=== PATIENT | female | born 1955 | race Two or more races ===

== ENCOUNTER 2019-07-10 09:10 | Outpatient (CLI) | payer MEDICARE, OTHER ==
[~2019-07-10] VITALS: Ht 165.1 cm; Wt 67.6 kg
[2019-07-10] MEDS ORDERED: CHOLESTEROL MED (13:28)
[2019-07-10] MEDS ORDERED: THYROID MED (13:28)
[2019-07-10 13:29] VITALS: BP 116/74
--- NOTE | 2019-07-10 16:00 | Consultation ---
DATE OF CONSULTATION: 07/10/2019 CHIEF COMPLAINT: Referral for screening colonoscopy. PAST MEDICAL HISTORY: 1. History of hypothyroidism 2. Hypercholesteremia. PAST SURGICAL HISTORY: None. MEDICATIONS: Thyroid medication, cholesterol medication. FAMILY HISTORY: No family history of GI malignancies. SOCIAL HISTORY: The patient denies any alcohol abuse, but she smokes two cigarettes per day. No IV drug abuse. ALLERGIES: No known allergies. REVIEW OF SYSTEMS: A 10-point review of systems was performed and was negative. PHYSICAL EXAMINATION: VITAL SIGNS: Temperature 98.3, blood pressure 116/74, pulse 69, respirations 20. HEENT: Normocephalic and atraumatic. Sclerae anicteric. NECK: Supple. No evidence of obvious lymphadenopathy. CARDIOVASCULAR: Regular rate and rhythm. Plus S1 and S2. LUNGS: Clear to auscultation bilaterally. ABDOMEN: Positive bowel sounds. Soft and nontender. No rebound. No guarding. No peritoneal sign. EXTREMITIES: No cyanosis, no clubbing, no edema ASSESSMENT AND PLAN: This is a 63-year-old female was referred for screening colonoscopy. The patient was given instruction for colonoscopy. Risks and benefits of procedure was explained to her. At this time, given COVID-19 epidemic we are going to hold off until the things are much safer and she will be scheduled at that time, but meanwhile the patient was told if she has any new symptoms including GI bleeding, severe abdominal pain, or any other symptoms of GI related call us back, we can reevaluate at that time. Shane Ferguson M.D. DR: Evelyne JOB#: [id number] CC:
== END 2019-07-10 11:10 | disposition home or self-care (01) ==
LOC: PAN 09:10
DX: E78.00 Pure hypercholesterolemia, unspecified (principal); E03.9 Hypothyroidism, unspecified; F17.210 Nicotine dependence, cigarettes, uncomplicated; Z79.899 Other long term (current) drug therapy
CPT/HCPCS: G0463

== ENCOUNTER 2019-10-01 08:04 | Day surgery (SDC) | payer MEDICARE, OTHER ==
[~2019-10-01] VITALS: Ht 152.4 cm; Wt 64.9 kg
[2019-10-01] VITALS (9 sets, daily range): BP systolic 113–151; BP diastolic 68–79
[~2019-10-01 08:04] MED LIST: ATORVASTATIN CA20 MG ORAL; CHOLESTEROL MED; LEVOTHYROXINE75 MCG ORAL; THYROID MED
[2019-10-01] MEDS ORDERED: LR 1000ml 1,000 ML IVLG SCH (08:46)
--- NOTE | 2019-10-01 08:55 | Anethesia Preoperative Eval ---
Anesthesia Pre-op PMH/ROS General Date of Evaluation: Oct 01, 2019 Time of Evaluation: 08:49 Anesthesiologist: romel ASA Score: ASA 3 Mallampati Score Class I : Soft palate, uvula, fauces, pillars visible Class II: Soft palate, uvula, fauces visible Class III: Soft palate, base of uvula visible Class IV: Only hard plate visible Mallampati Classification: Class II Surgeon: edwar Diagnosis: gi bleed, abdominal pain Surgical Procedure: colonoscopy Anesthesia History: none Social History: current smoker Family History: no anesthesia problems Allergies: Coded Allergies: No Known Allergies (Unverified , 10/01/19) Medications: see eMAR Patient NPO?: Yes Past Medical History Cardiovascular: Reports: other - hypercholesterolemia Endocrine: Reports: hypothyroidism Anesthesia Pre-op Phys. Exam Physician Exam Microbiology Date/Time Source Procedure Growth Status 09/28/19 09:00 Nasopharynx Coronavirus COVID-19 PCR ([facility]) - Final Complete Constitutional: NAD Neurologic: CN 2-12 intact Cardiovascular: RRR Respiratory: CTA Gastrointestinal: S/NT/ND Airway Exam Mallampati Score: Class II MO: limited Neck: short TMD: 2fb ROM: limited Anesthesia Pre-op A/P Labs Microbiology Date/Time Source Procedure Growth Status 09/28/19 09:00 Nasopharynx Coronavirus COVID-19 PCR ([facility]) - Final Complete Studies Pre-op Studies: EKG - nsr, possible inferior infarct, age undetermined Risk Assessment & Plan Assessment: asa3 Plan: mac Status Change Before Surgery: No Pre-Antibiotics Drug: Jasmin Ga MD Oct 01, 2019 08:55
[2019-10-01] MEDS ORDERED: DiphenhydrAMINE 50mg/ml Inj IVP PRN (09:00)
[2019-10-01] MEDS ORDERED: Atropine Inj 1mg/10ml Syr IV PRN (09:00)
[2019-10-01] MEDS ORDERED: fentaNYL 100 mcg/2 mL IV PRN (09:00)
[2019-10-01] MEDS ORDERED: Midazolam 2mg/2ml Inj IVP PRN (09:00)
--- NOTE | 2019-10-01 09:33 | Short Stay Surgery H&P ---
History of Present Illness History of Present Illness Chief Complaint see recent office consult note HPI Mel Young is a 63 year old female who was admitted on for Gi Bleed, Abdominal Pain Patient History Allergies: Coded Allergies: No Known Allergies (Unverified , 10/01/19) Medication History Scheduled Atorvastatin Calcium* (Atorvastatin Calcium*), 20 MG ORAL BEDTIME, (Reported) Levothyroxine Sodium* (Levothyroxine Sodium*), 88 MCG ORAL DAILY, (Reported) Plan Attestation Are the patient's medical conditions optimized for surgery? Shane Ferguson MD Oct 01, 2019 09:33
--- NOTE | 2019-10-01 09:33 | Pre-Procedure Note/Attestation ---
Pre-Procedure Note/Attestation Complete Prior to Procedure Planned Procedure: not applicable Procedure Narrative: colonoscopy Indications for Procedure Pre-Operative Diagnosis: screening Attestation I attest that I discussed the nature of the procedure; its benefits; risks and complications; and alternatives (and the risks and benefits of such alternatives ), prior to the procedure, with the patient (or the patient's legal customer account representative). I attest that, if there was a reasonable possibility of needing a blood transfusion, the patient (or the patient's legal customer account representative) was given the [facility] standardized written summary, pursuant to the [place] Blood Safety Act ([place] Health and Safety Code # 1645, as amended). I attest that I re-evaluated the patient just prior to the surgery and that there has been no change in the patient's H&P, except as documented below: Shane Ferguson MD Oct 01, 2019 09:33
[2019-10-01] MEDS ORDERED: LR 1000ml ONE (10:00)
[2019-10-01] MEDS ORDERED: Lidocaine 1% MPF 10mg/ml 5ml ONE (10:00)
--- NOTE | 2019-10-01 10:18 | Endoscopy Procedure Note ---
Endoscopy Procedure Note General Indication for Procedure: screening Procedures Performed: colonoscopy Operative Findings/Diagnosis: one polyp Specimen: yes Pt Tolerated Procedure Well: Yes Estimated Blood Loss: none Anesthesia Anesthesiologist: alfred buckner Anesthesia: MAC Inserted Devices Implant(s) used?: No Quality Quality of Bowel Preparation: Good Did scope reach the cecum?: Yes Was there any complications?: No GI Core Measures 50 yrs or older w/o bx or poly: No 10yrs. F/U recommended: Yes If not recommended, why?: Above average risk 18 years or older w/prev. colo: No Shane Ferguson MD Oct 01, 2019 10:18
--- NOTE | 2019-10-01 10:35 | Immediate Post-Op Evaluation ---
Immediate Post-Op Evalulation Immediate Post-Op Evalulation Procedure: colonoscopy w/ bx Date of Evaluation: Oct 01, 2019 Time of Evaluation: 10:35 IV Fluids: 300ml lr Blood Products: none Estimated Blood Loss: negligible Blood Pressure Systolic: 116 Blood Pressure Diastolic: 68 Pulse Rate: 55 Respiratory Rate: 18 O2 Sat by Pulse Oximetry: 99 Temperature (Fahrenheit): 97.9 Pain Score (1-10): 0 Nausea: No Vomiting: No Complications none Patient Status: awake, reacts, patent Hydration Status: adequate Drug: Jasmin Ga MD Oct 01, 2019 10:35
--- NOTE | 2019-10-01 10:37 | 48 Hour Post Anesthesia Eval ---
Post Anesthesia Evaluation Procedure: colonoscopy w/ bx Date of Evaluation: Oct 01, 2019 Time of Evaluation: 10:37 Blood Pressure Systolic: 113 0: 76 Pulse Rate: 57 Respiratory Rate: 18 Temperature (Fahrenheit): 97.9 O2 Sat by Pulse Oximetry: 100 Airway: patent Nausea: No Vomiting: No Pain Intensity: 0 Hydration Status: adequate Cardiopulmonary Status: stable Mental Status/LOC: patient returned to baseline Post-Anesthesia Complications: none Follow-up care needed: N/A Jasmin Delcid MD Oct 01, 2019 10:37
--- NOTE | 2019-10-01 14:00 | Procedure Note ---
DATE OF PROCEDURE: 10/01/2019 SURGEON: Shane Ferguson MD PROCEDURE: Colonoscopy with biopsy. ANESTHESIA: Per Dr. Rojas. INSTRUMENT: Olympus adult flexible colonoscope. INDICATIONS: Screening. REASON FOR PROCEDURE: The procedure, risks, benefits, and possible consequences, including hemorrhage, aspiration, perforation and infection, and alternative treatments, were explained to the patient/legal guardian by Dr. Shane Ferguson and the patient/legal guardian understood and accepted these risks. PROCEDURE IN DETAIL: After informed consent was obtained and the patient was adequately sedated, first, rectal exam was performed, which was positive for internal hemorrhoids. Then, the scope was advanced from the rectum into the cecum documented by appendix orifice, ileocecal valve, and right upper quadrant palpation. Quality of prep was very good. The patient had one polyp in the transverse colon, measured roughly about 5 mm, removed with the cold biopsy forceps technique. The rest of the examination grossly within normal limits. Retroflexion of rectum showed evidence of internal hemorrhoids. SUMMARY OF FINDINGS: 1. One colonic polyp removed. See above for details. 2. Internal hemorrhoids. RECOMMENDATIONS: 1. Follow pathology and treat accordingly. 2. We recommend repeat colonoscopy in 5 years. Shane Ferguson M.D. DR: JENNIFER JOB#: [id number] CC:
== END 2019-10-01 11:20 | disposition home or self-care (01) ==
LOC: GAS 08:04
DX: Z12.11 Encounter for screening for malignant neoplasm of colon (principal); K63.5 Polyp of colon; K64.8 Other hemorrhoids; D12.3 Benign neoplasm of transverse colon; F17.200 Nicotine dependence, unspecified, uncomplicated; E78.00 Pure hypercholesterolemia, unspecified; E03.9 Hypothyroidism, unspecified
CPT/HCPCS: 45380; 93005; 94003; J2704; J7120; 94150

== ENCOUNTER 2019-10-15 12:58 | Outpatient (CLI) | payer MEDICARE, OTHER ==
--- NOTE | 2019-10-15 22:14 | Progress Note ---
DATE: 10/15/2019 SUBJECTIVE: The patient is here for followup after procedure. PHYSICAL EXAMINATION: GENERAL: A well-developed female, in no acute distress HEENT: Normocephalic and atraumatic. Sclerae anicteric. NECK: Supple. No evidence of obvious lymphadenopathy. CARDIOVASCULAR: Regular rate and rhythm. Plus S1, S2. LUNGS: Clear to auscultation bilaterally. ABDOMEN: Positive bowel sounds. Soft and nontender. No rebound. No guarding. EXTREMITIES: No cyanosis, no clubbing, no edema. ASSESSMENT AND PLAN: This is a 63-year-old female with one polyp in the transverse colon, tubular adenoma. The patient is asymptomatic at this time. Needs repeat colonoscopy in five years. The patient was told to come back earlier if she has any symptoms, otherwise, repeat colonoscopy in five years. Shane Ferguson M.D. DR: Vahid JOB#: [id number] CC:
== END 2019-10-15 14:58 | disposition home or self-care (01) ==
LOC: PAN 12:58
DX: K63.5 Polyp of colon (principal); D12.6 Benign neoplasm of colon, unspecified
CPT/HCPCS: 99212

== ENCOUNTER 2020-01-31 13:30 | Outpatient (CLI) | payer MEDICARE, OTHER ==
[2020-01-31 13:48] VITALS: BP 116/71
--- NOTE | 2020-01-31 14:19 | General Progress Note ---
Subjective ROS Limited/Unobtainable: Yes Allergies: Coded Allergies: No Known Allergies (Unverified , 10/01/19) Objective Last 24 Hour Vital Signs Date Time Temp Pulse Resp B/P (MAP) Pulse Ox O2 Delivery O2 Flow Rate FiO2 01/31/20 13:48 96.9 66 16 116/71 97 General Appearance: alert EENT: normal ENT inspection Neck: supple Cardiovascular: normal rate Respiratory/Chest: lungs clear Abdomen: normal bowel sounds, non tender, soft Extremities: non-tender Assessment/Plan Assessment/Plan: colon polyp>>> repeat colonoscopy in 5 years DM elevated LFTS obtain abd us results repeat labs needs close fu Shane Ferguson MD Jan 31, 2020 14:19
== END 2020-01-31 15:30 | disposition home or self-care (01) ==
LOC: PAN 13:30
DX: K63.5 Polyp of colon (principal); E11.9 Type 2 diabetes mellitus without complications; R94.5 Abnormal results of liver function studies
CPT/HCPCS: 99212

== ENCOUNTER 2020-02-18 14:33 | Outpatient (CLI) | payer MEDICARE, OTHER ==
[2020-02-18 14:41] VITALS: BP 136/84
--- NOTE | 2020-02-18 14:56 | General Progress Note ---
Subjective ROS Limited/Unobtainable: Yes Allergies: Coded Allergies: No Known Allergies (Unverified , 10/01/19) Objective Last 24 Hour Vital Signs Date Time Temp Pulse Resp B/P (MAP) Pulse Ox O2 Delivery O2 Flow Rate FiO2 02/18/20 14:41 97.1 83 16 136/84 83 General Appearance: alert EENT: normal ENT inspection Neck: supple Cardiovascular: normal rate Respiratory/Chest: lungs clear Abdomen: normal bowel sounds, non tender, soft Extremities: non-tender Assessment/Plan Assessment/Plan: Assessment/Plan: colon polyp>>> repeat colonoscopy in 5 years DM elevated LFTS obtain abd us results>>> fatty liver repeat labs>> stable add Metformin RTC 2 months needs close fu Shane Ferguson MD Feb 18, 2020 14:56
== END 2020-02-18 16:33 | disposition home or self-care (01) ==
LOC: PAN 14:33
DX: K63.5 Polyp of colon (principal); E11.9 Type 2 diabetes mellitus without complications; R79.89 Other specified abnormal findings of blood chemistry
CPT/HCPCS: 99212

== ENCOUNTER 2020-04-21 14:29 | Outpatient (CLI) | payer MEDICARE, OTHER ==
--- NOTE | 2020-04-22 15:02 | General Progress Note ---
Subjective ROS Limited/Unobtainable: Yes Allergies: Coded Allergies: No Known Allergies (Unverified , 10/01/19) Objective General Appearance: alert EENT: normal ENT inspection Neck: supple Cardiovascular: normal rate Respiratory/Chest: decreased breath sounds Abdomen: normal bowel sounds, non tender, soft Extremities: non-tender Assessment/Plan Assessment/Plan: Assessment/Plan: colon polyp>>> repeat colonoscopy in 5 years DM elevated LFTS obtain abd us results>>> fatty liver repeat labs>> stable on Metformin RTC 2 months needs close fu Shane Ferguson MD Apr 22, 2020 15:02
== END 2020-04-21 16:29 | disposition home or self-care (01) ==
LOC: PAN 14:29
DX: K63.5 Polyp of colon (principal); E11.9 Type 2 diabetes mellitus without complications; R79.89 Other specified abnormal findings of blood chemistry; K76.0 Fatty (change of) liver, not elsewhere classified
CPT/HCPCS: 99212